=== PATIENT | male | born 1975 | race Caucasian/White ===

== ENCOUNTER 2017-10-18 03:03 | Observation (INO) | payer SELFPAY ==
[~2017-10-18] VITALS: Ht 188 cm; Wt 161.5 kg
[2017-10-18] MEDS ORDERED: ASPIRIN 81 MG CHEW TAB PO ONE (03:30)
[2017-10-18] MEDS ORDERED: NITROGLYCERIN 2% OINT 1 GM PKT TOP ONE (03:30)
[2017-10-18 03:52] LABS: KETONES,URINE NEGATIVE (NEGATIVE); LEUKOCYTE ESTERASE ,URINE 1+ (NEGATIVE); NITRITE,URINE NEGATIVE (NEGATIVE); PROTEIN,URINE DIPSTICK 3+ (NEGATIVE); URINE UROBILINOGEN 8 mg/dL (0.2 - 1)
[2017-10-18 03:54] LABS: BASOPHILS # (AUTO) 0.1 (0.0-0.1); BASOPHILS % 0.8 % (0.0-1.0); EOSINOPHILS # (AUTO) 0.3 (0.0-0.4); EOSINOPHILS % 2.2 % (0.0-6.0); HEMATOCRIT 44.4 % (38.2-49.6); HEMOGLOBIN 14.7 g/dL (14.0-18.0); LYMPHOCYTES % 23.1 % (18.0-39.1); MEAN CORPUSCULAR HEMOGLOBIN 27.6 pg (28-32); MEAN CORPUSCULAR HGB CONC 33.1 g/dL (31-35); MEAN CORPUSCULAR VOLUME 83.3 fL (81-99); MONOCYTES # (AUTO) 0.7 (0.2-0.8); MONOCYTES % 5.5 % (4.4-11.3); NEUTROPHILS # (AUTO) 8.8 (2.1-6.9); PLATELET COUNT 321 x10e3/uL (140-360); RED BLOOD COUNT 5.33 x10e6/uL (4.3-5.7); RED CELL DISTRIBUTION WIDTH 14.1 % (11.7-14.4)
[2017-10-18 03:56] LABS: BILIRUBIN,URINE 1+ (NEGATIVE); CLARITY,URINE SL CLOUDY (CLEAR); COLOR,URINE AMBER (YELLOW)
[2017-10-18 04:01] LABS: BACTERIA,URINE MODERATE /HPF; EPITHELIAL CELLS,URINE RARE /LPF; INR 0.98; PROTHROMBIN TIME 13.5 seconds (11.9-14.5); RBC,URINE 0-5 /HPF (0-5); WBC,URINE (MAN) 21-50 /HPF (0-5)
[2017-10-18 04:02] LABS: PARTIAL THROMBOPLASTIN TIME 31.3 seconds (23.8-35.5)
[2017-10-18 04:11] LABS: ALANINE AMINOTRANSFERASE 37 IU/L (0-55); ALBUMIN 3.5 g/dL (3.5-5.0); ALBUMIN/GLOBULIN RATIO 0.8 (0.8-2.0); ALKALINE PHOSPHATASE 120 IU/L (40-150); ANION GAP 15.2 mmol/L (8-16); BLOOD UREA NITROGEN 12 mg/dL (7-26); BUN/CREATININE RATIO 12 (6-25); CALCIUM 9.2 mg/dL (8.4-10.2); CARBON DIOXIDE 21 mmol/L (22-29); CHLORIDE 104 mmol/L (98-107); CREATINE KINASE 118 IU/L (30-200); CREATININE, SERUM 1.02 mg/dL (0.72-1.25); EST GLOMERULAR FILTRATION RATE > 60 ML/MIN (60-); GLUCOSE 133 mg/dL (74-118); MAGNESIUM 2.1 MG/DL (1.3-2.1); POTASSIUM 4.2 mmol/L (3.5-5.1); SODIUM 136 mmol/L (136-145)
[2017-10-18 04:18] LABS: AMPHETAMINES SCREEN,URINE POSITIVE (NEGATIVE); BENZODIAZEPINES SCREEN,URINE NEGATIVE (NEGATIVE); PHENCYCLIDINE SCREEN,URINE NEGATIVE (NEGATIVE)
[2017-10-18] MEDS ORDERED: ENALAPRILAT IV INJ 1.25 MG/ML VIAL IV STA (04:34)
--- NOTE | 2017-10-18 04:42 | Diagnostic Imaging Report ---
EXAM: CHEST 2 VIEWS, PA and lateral DATE: 10/18/2017 3:16 AM Time stamp on exam: 0324 hours INDICATION: Shortness of breath, cough COMPARISON: None FINDINGS: LINES/TUBES: None LUNGS: No consolidations. Vascular congestion. PLEURA: No effusions or pneumothorax. HEART AND MEDIASTINUM: Cardiomegaly BONES AND SOFT TISSUES: No acute findings. IMPRESSION: Cardiomegaly and vascular congestion. Signed by: Dr. Evelyn Montanez M.D. on 10/18/2017 4:38 AM
[2017-10-18] MEDS: CEFTRIAXONE SOD 1 GM VIAL IV SCH ×2 (04:45→17:13)
[2017-10-18] MEDS ORDERED: FUROSEMIDE INJ 10 MG/ML 4 ML VIAL IV ONE (06:00)
[2017-10-18] MEDS: LISINOPRIL 10 MG TAB PO SCH (08:41)
[2017-10-18] MEDS: METOPROLOL TARTRATE 25 MG TAB PO SCH ×2 (08:43→17:13)
[2017-10-18] MEDS ORDERED: FUROSEMIDE INJ 10 MG/ML 4 ML VIAL IV SCH (09:00)
[2017-10-18 11:43] LABS: CREATINE KINASE MB 3.4 ng/mL (0.00-5.00)
[2017-10-18] MEDS: NITROGLYCERIN 2% OINT 1 GM PKT TOP SCH ×2 (13:00→17:28)
[2017-10-18 16:15] VITALS: BP 165/108
--- NOTE | 2017-10-18 16:56 | History and Physical ---
The patient comes in with shortness of breath. HISTORY OF PRESENT ILLNESS: Mr. James Mcclelland has a history of hypertension in the past for the last 10 years, but has not seen a doctor for the last 6 years. He has been having some financial problems and went through a divorce, and so he claims he could not see a physician. He came into the emergency room today with dyspnea, which is moderate, and worsened by exertion and improved with rest. Positive for orthopnea and positive for some PND too. PAST MEDICAL HISTORY: Hypertension and hyperlipidemia. MEDICATIONS: Off medicine for years. ALLERGIES: NO KNOWN DRUG ALLERGIES. SOCIAL HISTORY: History of smoking. He smokes about a 1/2 a pack a day. No alcohol or drug abuse, although his amphetamines have been positive. FAMILY HISTORY: Noncontributory. REVIEW OF SYSTEMS: Negative for chest pain. Positive for shortness of breath. Positive for some nausea, no vomiting, no diarrhea, no constipation, no rectal bleeding, no hematochezia or hematemesis. Positive for orthopnea and positive for PND too. No diplopia and no blurry vision. PHYSICAL EXAMINATION GENERAL: The patient is alert and oriented x3. VITAL SIGNS: His blood pressure on arrival was 203/128 with tachycardia. Right now in the 170's. HEENT: Normocephalic, atraumatic. Pupils react to light and accommodation. CVS: S1 and S2 normal. Regular rate and rhythm. ABDOMEN: Nontender, nondistended. LUNGS: Positive for rales in the bilateral lower lung [place]. ABDOMEN: Soft. EXTREMITIES: Positive for edema. NEUROLOGIC: Alert and oriented x3. EKG shows 117 tachycardia, T-wave inversions in lead 1 and aVL. Chest x-ray shows cardiomegaly and vascular congestion. LABORATORY DATA: CBC was normal. White count of 12.9. Chemistries: Bicarb 21, glucose 133. Drug screen showed positive for amphetamines. Cardiac labs: BNP was 592. All the other enzymes were normal. UA showed WBCs 21,000, moderate bacteria. His recent echo shows EF of 25% to 30%. ASSESSMENT 1. Congestive heart failure. 2. Hypertensive urgency. PLAN: The patient has been started on IV Lasix. The patient has been put on nitroglycerin, metoprolol 25 mg twice a day. Lisinopril has been started. The patient is on Rocephin for his urinary tract infection 40 mg IV b.i.d. started on him. He is feeling better. Cardiology consult with Dr. Green has been done. Aspirin has been given. Will keep the patient inpatient for one day, possible discharge tomorrow on diuretics, beta blockade and also MARISELA inhibitor. , further recommendations depending on clinical course and we will also wait for the urine cultures and send him home on p.o. antibiotics for his urinary tract infection. The patient has been advised not to smoke and also drug abuse aversion has been indicated. Job#: [id number]
[2017-10-18] MEDS: FUROSEMIDE INJ 10 MG/ML 4 ML VIAL IV SCH (17:13)
[2017-10-18 17:34] VITALS: BP 165/105
[2017-10-18] MEDS: ACETAMINOPHEN 325 MG TAB PO PRN (17:59)
[2017-10-18 19:32] LABS: CREATINE KINASE MB 2.6 ng/mL (0.00-5.00)
[2017-10-18 20:00] VITALS: BP 140/86
[2017-10-18 21:04] VITALS: BP 140/86
[2017-10-19] VITALS: BP 128/77
[2017-10-19] MEDS: NITROGLYCERIN 2% OINT 1 GM PKT TOP SCH ×4 (00:28→17:38)
[2017-10-19 04:00] VITALS: BP 153/93
[2017-10-19] MEDS: ACETAMINOPHEN 325 MG TAB PO PRN (05:07)
[2017-10-19] MEDS: FUROSEMIDE INJ 10 MG/ML 4 ML VIAL IV SCH ×2 (05:07→17:13)
[2017-10-19] MEDS: CEFTRIAXONE SOD 1 GM VIAL IV SCH ×2 (05:07→16:20)
[2017-10-19] MEDS: LISINOPRIL 10 MG TAB PO SCH (08:20)
[2017-10-19] MEDS: METOPROLOL TARTRATE 25 MG TAB PO SCH (08:21)
[2017-10-19 08:28] VITALS: BP 133/89
[2017-10-19 09:00] VITALS: BP 133/89
[2017-10-19 12:13] VITALS: BP 137/89
--- NOTE | 2017-10-19 13:34 | Consultation ---
DATE OF CONSULTATION: October 19, 2017 CARDIOLOGY CONSULTATION REQUESTING PHYSICIAN: Dr. Shubham Yanes. REASON FOR CONSULTATION: Congestive heart failure. HISTORY OF PRESENT ILLNESS: This is a 42-year-old man with history of hypertension and hyperlipidemia, who presented with complaints of shortness of breath. He reports he has had lower extremity swelling for approximately 1 month. One to two weeks ago he developed shortness of breath that has been progressive. Onset three days ago he noted orthopnea and PND. He has also had increasing dyspnea on exertion. He denies any chest pain or palpitations. REVIEW OF SYSTEMS: Negative except as per HPI. PAST MEDICAL HISTORY 1. Hypertension. 2. Hyperlipidemia. PAST SURGICAL HISTORY: None. ALLERGIES: NO KNOWN DRUG ALLERGIES. MEDICATIONS: None. SOCIAL HISTORY: He smokes half a pack a day for 20 years. No alcohol. Remote marijuana use. FAMILY HISTORY: Noncontributory. PHYSICAL EXAMINATION VITAL SIGNS: Temperature 96.3 degrees, pulse 100, respiratory rate 22, blood pressure 133/89, oxygen saturation 98% on room air. GENERAL: A morbidly obese gentleman in no acute distress, well developed, well nourished. HEENT: Normocephalic, atraumatic. Pupils equal, no scleral icterus. NECK: Supple. No thyromegaly or cervical lymphadenopathy no carotid bruits. LUNGS: Clear to auscultation bilaterally. No wheezes or crackles. CARDIOVASCULAR: Normal rate, regular rhythm. No murmur. Normal S1 and S2. ABDOMEN: Soft, nontender. EXTREMITIES: 1+ pitting edema bilateral lower extremities. NEURO: Nonfocal exam. LABS: WBC 12.91, hemoglobin 14.7, hematocrit 44.4, platelets 321. Sodium 136, potassium 4.2, chloride 104, CO2 21, BUN 12, creatinine 1.02. BNP 592. Troponin 0.46. EKG: Sinus tachycardia, possible left atrial abnormality, left anterior fascicular block, left ventricular hypertrophy. ECHOCARDIOGRAM: With mildly dilated LV and mild concentric LVH. EF is severely impaired with EF between 25% and 30%. IMPRESSION 1. Acute systolic heart failure. 2. Hypertension, uncontrolled. 3. Hyperlipidemia. RECOMMENDATIONS: Agree with intravenous Lasix. Will transition to carvedilol for heart failure therapy. Continue lisinopril. He will need ischemic evaluation once he is able to lie flat. Thank you for this consult. We will continue to follow. Job#: [id number] EV MTDD
[2017-10-19 16:36] VITALS: BP 164/73
[2017-10-19] MEDS ORDERED: CARVEDILOL 12.5 MG TAB PO SCH (17:00)
[2017-10-19] MEDS ORDERED: COREG3.125 MG PO (17:28)
[2017-10-19] MEDS ORDERED: LASIX40 MG PO (17:29)
[2017-10-19] MEDS ORDERED: LISINOPRIL10 MG PO (17:29)
--- NOTE | 2017-11-20 04:56 | Discharge Summary ---
The patient came to the hospital for congestive acute systolic heart failure, uncontrolled hypertension, and hyperlipidemia. Consult with Dr. Ku was done. Patient was started on IV Lasix, transitioned to p.o. Lasix in the hospital. Beta blockade, MARISELA inhibitors were continued to augment heart failure treatment. Patient was feeling better after IV Lasix and the patient blood pressure was also well controlled with medication, and the patient was discharged home. FINAL DIAGNOSIS: Congestive heart failure. Patient had an echo done and his EF was 25% to 30%. The patient was asked to follow up with Dr. Ku as an outpatient basis. Further recommendation on clinical course. Discharge summary included MARISELA inhibitors, beta blockade, Lasix, and daily weights were suggested for the patient and also no salt intake was suggested to the patient. DISCHARGE MEDICATIONS: Include carvedilol, Lasix, and lisinopril. For further information, look in the chart; and for medicines on discharge, look in the medical reconciliation sheet. TERELL CABRAL MD Job#: [id number]
== END 2017-10-19 18:04 | disposition home or self-care (01) ==
LOC: ER 03:03 → ERHOLD 07:09 → IMCU 15:20
PROVIDERS: ADMIT Family Medicine; ATTEND Family Medicine
DX: I11.0 Hypertensive heart disease with heart failure (principal); I50.21 Acute systolic (congestive) heart failure; I16.0 Hypertensive urgency; F17.210 Nicotine dependence, cigarettes, uncomplicated; E78.5 Hyperlipidemia, unspecified
CPT/HCPCS: 36415; 71020; 80053; 80307; 81001; 82550; 82553; 83735; 83880; 84484; 85025; 85610; 85730; 87086; 93005; 93306; 99284; G0378 ×2; J0696 ×2; J1940 ×2; 71046

== ENCOUNTER 2018-04-02 01:48 | Emergency (ER) | payer SELFPAY ==
[~2018-04-02] VITALS: Ht 188 cm; Wt 161.5 kg
[~2018-04-02 01:48] MED LIST: COREG3.125 MG PO; LASIX40 MG PO; LISINOPRIL10 MG PO
[2018-04-02] MEDS: ASPIRIN 81 MG CHEW TAB PO ONE (02:22)
[2018-04-02] MEDS: IBUPROFEN 600 MG TAB PO STA (02:22)
[2018-04-02 02:31] LABS: BASOPHILS # (AUTO) 0.1 (0.0-0.1); BASOPHILS % 0.9 % (0.0-1.0); EOSINOPHILS # (AUTO) 0.1 (0.0-0.4); EOSINOPHILS % 1.4 % (0.0-6.0); LYMPHOCYTES # (AUTO) 1.4 (1.0-3.2); LYMPHOCYTES % 16.1 % (18.0-39.1); MEAN CORPUSCULAR HEMOGLOBIN 28.4 pg (28-32); MEAN CORPUSCULAR HGB CONC 34.1 g/dL (31-35); MEAN CORPUSCULAR VOLUME 83.2 fL (81-99); MONOCYTES # (AUTO) 0.8 (0.2-0.8); NEUTROPHILS # (AUTO) 6.1 (2.1-6.9); NEUTROPHILS % 72.4 % (38.7-80.0); PLATELET COUNT 289 x10e3/uL (140-360); RED BLOOD COUNT 5.29 x10e6/uL (4.3-5.7); RED CELL DISTRIBUTION WIDTH 12.5 % (11.7-14.4)
[2018-04-02 02:51] LABS: ALANINE AMINOTRANSFERASE 38 IU/L (0-55); ALBUMIN 3.4 g/dL (3.5-5.0); ALBUMIN/GLOBULIN RATIO 0.8 (0.8-2.0); ALKALINE PHOSPHATASE 101 IU/L (40-150); BLOOD UREA NITROGEN 12 mg/dL (7-26); BUN/CREATININE RATIO 10 (6-25); CALCIUM 9.2 mg/dL (8.4-10.2); CARBON DIOXIDE 24 mmol/L (22-29); CHLORIDE 100 mmol/L (98-107); CREATINE KINASE 812 IU/L (30-200); CREATININE, SERUM 1.15 mg/dL (0.72-1.25); EST GLOMERULAR FILTRATION RATE > 60 ML/MIN (60-); GLUCOSE 105 mg/dL (74-118); SODIUM 135 mmol/L (136-145)
--- NOTE | 2018-04-02 02:54 | Diagnostic Imaging Report ---
EXAMINATION: CHEST 2 VIEWS INDICATION: Cough, fever, shortness of breath COMPARISON: 10/18/2017 FINDINGS: TUBES and LINES: None. LUNGS: Lungs are not well inflated. There is evidence of fine interlobular septi thickening There is mild prominence of the central pulmonary vasculature, consistent with pulmonary venous congestion. PLEURA: No pleural effusion or pneumothorax. HEART AND MEDIASTINUM: Cardiac size is mildly enlarged. There are atherosclerotic calcifications within the aorta. BONES AND SOFT TISSUES: No acute osseous lesion. Soft tissues are unremarkable. UPPER ABDOMEN: No free air under the diaphragm. IMPRESSION: Findings are suspicious for mild cardiogenic pulmonary edema. Signed by: Dr. Danyel Martinez M.D. on 04/02/2018 2:51 AM
[2018-04-02] MEDS: FUROSEMIDE INJ 10 MG/ML 4 ML VIAL IV ONE (03:06)
== END 2018-04-02 03:37 | disposition home or self-care (01) ==
LOC: ER 01:48
DX: R50.9 Fever, unspecified (principal); R06.09 Other forms of dyspnea; J20.9 Acute bronchitis, unspecified; I50.22 Chronic systolic (congestive) heart failure; I10 Essential (primary) hypertension; E78.5 Hyperlipidemia, unspecified
CPT/HCPCS: 36415; 71046; 80053; 82550; 82553; 83880; 84484; 85025; 99283; J1940